=== PATIENT | female | born 1950 | race Caucasian/White ===

== ENCOUNTER 2018-03-24 12:30 | Observation (INO) ==
--- NOTE | 2018-03-24 12:56 | Cardiology History & Physical ---
History of Present Illness Chief complaint: chest pain HPI: Maddison is a 68 year old female who is known to Dr. Ireland with a history of CAD with CABG, HTN and HLD who presented to [facility] in [place] with intermittent sternal chest pain since 0530 this morning. Has had similar episode over the past few weeks but the pain would subside after about an hour. Also reports right leg pain for 1 week. No associated symptoms. CXR without active cardiopulmonary disease. EKG sinus hayden with nonspecific ST-T changes. Troponin was negative. Dr. Ireland was contacted for further evaluation and the patient was transferred to [facility] [place] for observation and rule out [place]. Last echo: 04/2017: EF 60%, NWMA, mild TR/MR, RVSP 17mmHg Last stress test: 05/2017: EF 74%, normal Last HC: 01/2016: EF 65%, LVEDP 25mmHg, RRA71-49%, Cx 40-50%, RCA occluded. Grafts: CHILDS to LAD patent, SVG to RCA patent. Review of Systems - Constitutional Constitutional: Absent: chills, fatigue, fever(s) - EENMT Eyes: Absent: change in vision Balance: Absent: vertigo Mouth/Throat: Absent: sore throat - Cardiovascular Cardiovascular: Present: chest pain, dyspnea on exertion. Absent: palpitations , syncope, orthopnea, edema, heart murmur Rhythm: Absent: abnormal rhythm Vascular: Absent: pedal edema - Respiratory Respiratory: Absent: cough, dyspnea, dyspnea on exertion - Gastrointestinal Gastrointestinal: Absent: constipation, diarrhea, nausea, vomiting - Genitourinary Genitourinary: Absent: dysuria - Integumentary/Breasts Integumentary: Absent: rash - Neurological Neurological: Absent: dizziness - Endocrine Endocrine: Absent: palpitations PFSH CAD, CABG HTN HLD Depression DMII cervical spinal stenosis Surgical History: cholecystectomy. Appendectomy. hysterectomy Family History: Brother - [place], cause of , age 28 Father - [place], cause of age 56 Mother - CAD - Social History Smoking status: Former smoker Packs-years: 38 Substance use type: does not use Alcohol intake frequency: holidays/special occasions only Housing: house Household members: spouse Current occupational status: employed Current residence: Apartment/Private Home Medications Home Medications Medication Instructions Recorded Confirmed Type Aspirin *EC* [Ecotrin] 1 tab PO DAILY 03/24/18 03/24/18 History Atorvastatin Calcium 80 mg PO DAILY 03/24/18 03/24/18 History Calcium 500 + D [Os [place]an[place]-D 500] 1 tab PO DAILY 03/24/18 03/24/18 History Carbamide Peroxide Ear Drops 5 - 10 drops EACH EAR DAILY PRN 03/24/18 03/24/18 History [Debrox] Flaxseed/Omega3,6,9/Fatty Acid 1 each PO DAILY 03/24/18 03/24/18 History [Flax Seed Oil 1,300 mg Softgel] Magnesium Oxide [Magnesium] 400 mg PO DAILY 03/24/18 03/24/18 History Multivitamin/Iron/Folic Acid 1 each PO DAILY 03/24/18 03/24/18 History [Centrum Women Tablet] Telmisartan/Hydrochlorothiazid 1 each PO DAILY 03/24/18 03/24/18 History [Telmisartan-Hctz 40-12.5 mg Tb] Amlodipine [Norvasc] 5 mg PO DAILY #30 tab 03/25/18 Rx Ezetimibe [Zetia] 10 mg PO DAILY #30 tab 03/25/18 Rx Allergies Allergy/AdvReac Type Severity Reaction Status Date / Time sulfamethoxazole Allergy Severe Hives Verified 03/24/18 14:34 [From Bactrim] trimethoprim [From Bactrim] Allergy Severe Hives Verified 03/24/18 14:34 diphenhydramine AdvReac Intermediate Light-Heade Verified 03/24/18 14:34 [From Benadryl] dness gabapentin AdvReac Intermediate Dizziness Verified 03/24/18 14:34 metformin AdvReac Intermediate Nausea Verified 03/24/18 14:34 Exam - Constitutional no acute distress, well nourished, cooperative - Routine HEENT Exam Head: Present: normocephalic ENT: Present: mucous membranes moist - Routine Neck Exam Absent: JVD, carotid bruit - Routine Chest/Breast/Axilla Exam Chest wall: Absent: tenderness - Routine Respiratory Exam Present: CTA bilaterally. Absent: dyspnea, rales, wheezes - Routine Cardiovascular Exam Present: RRR, no murmur - Routine Abdominal Exam Present: soft, non tender - Routine Extremities Exam Present: no edema, pulses intact - Routine Skin Exam Present: intact, dry, warm - Routine Neurological Exam Present: alert, oriented X3 - Routine Psychiatric Exam Present: normal affect, normal thought process Results 03/25/18 01:53 03/25/18 01:53 EKG interpretations - EKG EKG results cardiology: sinus rhythm EKG shows: bradycardia - Blocks, axis, hypertrophy, ST abn Repolarization changes or abnormalities: nonspecific abnormality, ST segment, and/or T wave Hospital Course This is a general summary of the patient's hospital course. For more details refer to the complete medical record. Time spent with patient: 25 - 35 minutes External Problems Reviewed(CCD)?: Yes Resuscitation Status: Full Code Assessment and Plan - Attestation Attestation Narrative: 03/30/18 10:42 Recommendation After examining the patient I agree with the above assessment. I am involved in the formulation of the patient's plan of care. - Assessment and Plan (1) Precordial chest pain Status: Acute Chest pain concerning for ischemia - EKG: sinus hayden with NSSTT changes - trend serial troponin, negative at [place], 1st negative here - NPO at 0800, Plan [facility] tomorrow afternoon - Continue Aspirin, statin, RAB, CCB, cannot tolerate BB due to bradycardia (2) Atherosclerosis of coronary artery bypass graft without angina pectoris Status: Chronic CHILDS to LAD, SVA to RCA in 2012 -Continue Aspirin, statin, RAB, CCB, cannot tolerate BB due to bradycardia (3) Essential (primary) hypertension Status: Chronic Add Amlodipine 5mg for suboptimal control of BP (4) Mixed hyperlipidemia Status: Chronic Continue statin therapy, lipid panel
--- NOTE | 2018-03-24 15:42 | Ultrasound Report ---
Indication: right calf pain PROCEDURE: US venous doppler LE RT: Encounter: Initial Comparison: None Technique: Color Doppler duplex and grayscale sonographic imaging of the right lower extremity was performed. Findings: There is no evidence for acute deep venous thrombosis in the right thigh. Specifically, serial graded compression was performed from the inguinal ligament to the popliteal bifurcation, on the right thigh, demonstrating appropriate compressibility of the deep venous system. In addition, color and pulsed Doppler demonstrate appropriate spontaneous flow, variation with respiration, and augmentation with calf compression. At the ankle, normal flow is identified in the posterior tibial veins; these vessels are also normal in caliber. Impression: No evidence of acute DVT in the right lower limb. .
[2018-03-24] MEDS ORDERED: CARBAMIDE PEROXIDE 6.5% EAR DROPS 15ml EACH EAR PRN (17:16)
[2018-03-24] MEDS: AMLODIPINE 5 MG TABLET PO SCH (18:01)
[2018-03-24] MEDS ORDERED: ACETAMINOPHEN 325 MG TABLET PO PRN ×2 (20:40→20:50)
[2018-03-24] MEDS: ATORVASTATIN 40 MG TABLET PO SCH (20:52)
[2018-03-25] MEDS: AMLODIPINE 5 MG TABLET PO SCH ×2 (07:26→10:02)
[2018-03-25] MEDS: CALCIUM 500 + VIT D 200 TABLET PO SCH ×2 (07:26→10:03)
[2018-03-25] MEDS: ASPIRIN *EC* 81 MG TABLET PO SCH ×2 (07:26→10:03)
[2018-03-25] MEDS: TELMISARTAN 40 MG TABLET PO SCH (07:26)
[2018-03-25] MEDS: MAGNESIUM OXIDE 400 MG TABLET PO SCH ×2 (07:27→10:03)
[2018-03-25] MEDS ORDERED: [UNRECOGNIZED DRUG - OTHER] PO SCH (09:00)
[2018-03-25] MEDS: MULTI-VITAMIN + MINERAL TABLET PO SCH (10:03)
[2018-03-25 11:06] VITALS: BMI 26.5
[2018-03-25] MEDS: NS 1,000 ML IV SCH (14:55)
[2018-03-25] MEDS ORDERED: HEPARIN 1,000 UNITS/500 ML PREMIX (*CVL ONLY*) IV ONE (15:01)
[2018-03-25] MEDS ORDERED: LIDOCAINE 1% (10mg/ml) 30ml SDV INJ ONE (15:01)
[2018-03-25] MEDS ORDERED: IOHEXOL 350mg/ml 200ml BOTTLE ONE (15:16)
[2018-03-25] MEDS ORDERED: MIDAZOLAM 2mg/2ml INJECTION ONE (15:19)
[2018-03-25] MEDS ORDERED: FentaNYL 100 MCG/2 ML INJECTION ONE (15:19)
--- NOTE | 2018-03-25 15:32 | Discharge Summary ---
Discharge Information Date of admission: 03/24/18 13:40 Anticipated date of discharge: 03/25/18 Attending Physician: Jamaal Ireland MD Primary care physician: Liss Garrett MD - Discharge Diagnosis (1) Precordial chest pain Status: Acute (2) Atherosclerosis of coronary artery bypass graft without angina pectoris Status: Chronic (3) Essential (primary) hypertension Status: Chronic (4) Mixed hyperlipidemia Status: Chronic - Procedures Procedures: left heart catheterization - Laboratory Labs: 03/25/18 01:53 03/25/18 01:53 History of Present Illness HPI: Maddison is a 68 year old female who is known to Dr. Ireland with a history of CAD with CABG, HTN and HLD who presented to [facility] in [place] with intermittent sternal chest pain since 0530 this morning. Has had similar episode over the past few weeks but the pain would subside after about an hour. Also reports right leg pain for 1 week. No associated symptoms. CXR without active cardiopulmonary disease. EKG sinus hayden with nonspecific ST-T changes. Troponin was negative. Dr. Ireland was contacted for further evaluation and the patient was [place] [facility] [place] and rule out [place]. Last echo: 04/2017: EF 60%, NWMA, mild TR/MR, RVSP 17mmHg Last stress test: 05/2017: EF 74%, normal Last HC: 01/2016: EF 65%, LVEDP 25mmHg, SYX96-99%, Cx 40-50%, RCA occluded. Grafts: CHILDS to LAD patent, SVG to RCA patent. Hospital Course This is a general summary of the patient's hospital course. For more details refer to the complete medical record. Time spent with patient: 25 - 35 minutes External Problems Reviewed(CCD)?: Yes Resuscitation Status: Full Code Exam Vital signs: Temperature 96.5 F L 03/25/18 04:17 Pulse Rate 67 03/25/18 12:00 Respiratory Rate 18 03/25/18 12:00 Blood Pressure 140/78 H 03/25/18 12:00 Pulse Oximetry 97 03/25/18 12:00 - Constitutional no acute distress, well nourished, cooperative - Routine HEENT Exam Head: Present: normocephalic ENT: Present: mucous membranes moist - Routine Neck Exam Absent: JVD, carotid bruit - Routine Chest/Breast/Axilla Exam Chest wall: Absent: tenderness - Routine Respiratory Exam Present: CTA bilaterally. Absent: dyspnea, rales, wheezes - Routine Cardiovascular Exam Present: no murmur. Absent: RRR - Routine Abdominal Exam Present: soft, non tender - Routine Extremities Exam Present: no edema, pulses intact - Routine Skin Exam Present: intact, dry, warm - Routine Neurological Exam Present: alert, oriented X3 - Routine Psychiatric Exam Present: normal affect, normal thought process Results 03/25/18 01:53 03/25/18 01:53 Cardiac Enzymes 03/24/18 03/25/18 Range/Units 20:36 01:53 Troponin I < 0.012 < 0.012 (0-0.12) ng/ml Lipids 03/25/18 Range/Units 01:53 Triglycerides 221 H (35-135) mg/dL Cholesterol 219 H (132-199) mg/dL HDL Cholesterol 44 (40-60) mg/dL Cholesterol/HDL Ratio 5.0 H (0-4.0) RATIO CBC 03/25/18 Range/Units 01:53 WBC 6.6 (4.5-11.0) T/MM3 RBC 4.42 (4.00-5.20) M/MM3 Hgb 12.7 (12-16) GM/DL Hct 40.2 (36-46) % Plt Count 296 (130-400) T/MM3 Comprehensive Metabolic Panel 03/25/18 Range/Units 01:53 Sodium 142 (136-146) MEQ/L Potassium 3.9 (3.6-5) MEQ/L Chloride 103 (98-107) MEQ/L Carbon Dioxide 28 (22-30) MEQ/L BUN 20.0 H (7-17) MG/DL Creatinine 0.9 (0.7-1.2) mg/dL Glucose 102 (65-110) MG/DL Calcium 9.3 (8.4-10.2) MG/DL Intake and Output 03/24/18 03/25/18 03/25/18 23:59 07:59 15:59 Intake Total 200 / 200 Balance 200 / 200 Intake: Oral 200 / 200 Other: # Voids 1 1 # Bowel Movements 1 Weight 164 lb 7.437 oz 164 lb 7.437 oz Patient Weight 03/25/18 23:59 Weight 164 lb 7.437 oz - Imaging and Cardiology Imaging & Cardiology Narrative: Date of Exam: 03/24/18 Ordering Provider: Chanda Garay APRN Type of Exam(s): US venous doppler LE RT Reason for Exam(s): right calf pain Indication: right calf pain PROCEDURE: US venous doppler LE RT: Encounter: Initial Comparison: None Technique: Color Doppler duplex and grayscale sonographic imaging of the right lower extremity was performed. Findings: There is no evidence for acute deep venous thrombosis in the right thigh. Specifically, serial graded compression was performed from the inguinal ligament to the popliteal bifurcation, on the right thigh, demonstrating appropriate compressibility of the deep venous system. In addition, color and pulsed Doppler demonstrate appropriate spontaneous flow, variation with respiration, and augmentation with calf compression. At the ankle, normal flow is identified in the posterior tibial veins; these vessels are also normal in caliber. Impression: No evidence of acute DVT in the right lower limb. . 03/25/18 15:32 Discharge Plan - Med Rec/Dispo Referrals/Follow Up: Jamaal Ireland MD [Physician] - 2 Weeks Prescriptions: New Amlodipine [Norvasc] 5 mg PO DAILY #30 tab Continue Magnesium Oxide [Magnesium] 400 mg PO DAILY Carbamide Peroxide Ear Drops [Debrox] 5 - 10 drops EACH EAR DAILY PRN PRN Reason: WAX BUILDUP Atorvastatin Calcium 80 mg PO DAILY Flaxseed/Omega3,6,9/Fatty Acid [Flax Seed Oil 1,300 mg Softgel] 1 each PO DAILY Multivitamin/Iron/Folic Acid [Centrum Women Tablet] 1 each PO DAILY Aspirin *EC* [Ecotrin] 1 tab PO DAILY Calcium 500 + D [Os [place]-D 500] 1 tab PO DAILY Telmisartan/Hydrochlorothiazid [Telmisartan-Hctz 40-12.5 mg Tb] 1 each PO DAILY - Disposition 01 Discharged Home, Self-Care - Dismissal Complete Discharge Instructions are:: Complete
[2018-03-25] MEDS ORDERED: BISACODYL 10 MG SUPPOSITORY RECTALLY PRN (16:06)
[2018-03-25] MEDS ORDERED: HYDROCODONE/APAP 7.5 MG/325 MG TABLET PO PRN (16:06)
[2018-03-25] MEDS ORDERED: ONDANSETRON 4 MG/2 ML INJECTION IVP PRN (16:06)
[2018-03-25] MEDS ORDERED: ACETAMINOPHEN 325 MG TABLET PO PRN (16:06)
[2018-03-25] MEDS ORDERED: ATROPINE 1 MG/ML INJECTION IVP PRN (16:06)
[2018-03-25] MEDS ORDERED: METOCLOPRAMIDE 10mg/2ml INJECTION IVP PRN (16:06)
[2018-03-25] MEDS ORDERED: NITROGLYCERIN 0.4 MG SUBLINGUAL TABLET SL PRN (16:06)
[2018-03-25] MEDS ORDERED: MAG-AL + SIM ORAL LIQUID 30ml PO PRN (16:06)
[2018-03-25] MEDS ORDERED: PROMETHAZINE 25 MG INJECTION IVP PRN (16:06)
[2018-03-25] MEDS ORDERED: Bisacodyl EC TAB 5 MG TABLET PO PRN (16:06)
[2018-03-25] MEDS ORDERED: LORazepam 0.5 MG TABLET PO PRN (16:06)
[2018-03-25] MEDS ORDERED: MORPHINE SULFATE 4mg INJECTION IVP PRN ×2 (16:06)
--- NOTE | 2018-03-25 17:14 | Cardiac Catheterization Report ---
DATE OF PROCEDURE March 25, 2018 The patient is a pleasant 68-year-old lady with history of coronary artery disease and coronary artery bypass graft who was admitted with what appears to be unstable angina. She was referred for further evaluation by cardiac catheterization and possible intervention. Informed consent was obtained after explaining the procedure and the potential risks to the patient who agreed to proceed with the procedure. PROCEDURE 1. Left heart catheterization. 2. Coronary angiography. 3. Left ventriculography. 4. Bypass angiography. 5. Selective CHILDS angiography. 6. Right femoral angiography to visualize the vessel for closure device. 7. Successful Mynx deployment for hemostasis. TECHNIQUE She was prepped and draped in the usual sterile techniques. Conscious sedation was performed using Versed and fentanyl. 1% lidocaine was used for local anesthesia. Using modified Seldinger technique, arterial access was obtained into the right femoral artery with placement of a 6-Irish arterial sheath. LEFT VENTRICULOGRAPHY Left ventriculography in single-plane HERNANDEZ shallow projection showed normal LV systolic function with ejection fraction of about 65% with no mitral regurgitation or gradient across the aortic valve. LVEDP was about 8. CORONARY ANGIOGRAPHY Left main was free of significant lesions. Left anterior descending artery had about 70%-75% stenosis. Left circumflex artery was a medium-caliber vessel with no significant lesions. Right coronary artery was occluded distally. CHILDS to LAD was widely patent with excellent flow. A vein graft to the right coronary artery was patent with excellent flow. Right femoral angiography showed patent common femoral, proximal SFA and profunda and therefore Mynx was used for hemostasis. IMPRESSION 1. Normal LV systolic function with ejection fraction of 65%. 2. Coronary artery disease as described above with patent grafts. 3. Successful Mynx deployment for hemostasis. PLAN Medical management. The patient may require noncardiac chest pain workup. MTDD
[2018-03-25] MEDS: EZETIMIBE 10 MG TABLET PO SCH (17:53)
[2018-03-25] MEDS: ATORVASTATIN 40 MG TABLET PO SCH (20:55)
[2018-03-26] MEDS: NS 1,000 ML IV SCH (04:24)
[2018-03-26] MEDS: MAGNESIUM OXIDE 400 MG TABLET PO SCH (08:36)
[2018-03-26] MEDS: CALCIUM 500 + VIT D 200 TABLET PO SCH (08:36)
[2018-03-26] MEDS: AMLODIPINE 5 MG TABLET PO SCH (08:37)
[2018-03-26] MEDS: ASPIRIN *EC* 81 MG TABLET PO SCH (08:37)
[2018-03-26] MEDS: MULTI-VITAMIN + MINERAL TABLET PO SCH (08:37)
[2018-03-26] MEDS: TELMISARTAN 40 MG TABLET PO SCH (08:37)
[2018-03-26] MEDS: EZETIMIBE 10 MG TABLET PO SCH (08:40)
[2018-03-26 12:11] VITALS: BP 120/65; RESP 16; TEMP 97.8; O2SAT 93
[2018-03-26 14:21] VITALS: PULSE 67
--- NOTE | 2018-03-26 15:45 | Cardiology Progress Note ---
Subjective Principal diagnosis: Pericrodial Pain Interval history: Mrs. Dhillon had a HC yesterday per that showed no obstructive disease and no PCI was indicated. She was set to discharge until notified via telephone yesterday evening that she was c/o increased pain to right groin sight that was only minimally relieved with PRN [place]. Notified site was soft, palpable, no hematoma and/or bleeding. Spoke with and was decided to keep pt overnight for monitoring. Instructed RN to have pt ambulate and stay out of bed as much as possible. Today the patient is in no pain. Her right groin site is soft, palpable, dressing C/D/I, no bruising and minimal tenderness with palpation of the site. She states she has been tolerating walking without any difficulty, no CP, SOA, n/v, diaphoresis and RN states no PRN meds needed overnight. She will d/c to home with her and follow up with as instructed. Exam Vital signs: Temperature 97.8 F 03/26/18 12:09 Pulse Rate 67 03/26/18 14:00 Respiratory Rate 16 03/26/18 12:09 Blood Pressure 120/65 03/26/18 12:09 Pulse Oximetry 93 03/26/18 12:09 Inpatient Medications: Discontinued Medications Generic Name Dose Route Start Last Admin Trade Name Freq PRN Reason Stop Dose Admin Acetaminophen 325 mg 03/24/18 20:40 03/24/18 20:53 Tylenol PO 325 mg Q5H PRN Administration Discomfort Acetaminophen 0 mg 03/24/18 20:50 Tylenol PO Q5H PRN Discomfort Acetaminophen 325 - 650 mg 03/25/18 16:06 Tylenol PO Q5H PRN Pain Hydrocodone Bitart/Acetaminophen 1 - 2 tab 03/25/18 16:06 03/25/18 17:52 [place] 7.5/325 PO 1 tab Q5H PRN Administration Pain Al Hydroxide/Mg Hydroxide 30 ml 03/25/18 16:06 Maalox Plus PO Q3H PRN Indigestion Amlodipine Besylate 5 mg 03/24/18 17:30 03/26/18 08:37 Norvasc PO 5 mg DAILY DEREJE Administration Aspirin 81 mg 03/25/18 09:00 03/26/18 08:37 Ecotrin PO 81 mg DAILY DEREJE Administration Atorvastatin Calcium 80 mg 03/24/18 21:00 03/25/18 20:55 Lipitor PO 80 mg HS DEREJE Administration Atropine Sulfate 0.5 mg 03/25/18 16:06 Atropine IVP Q5M PRN Bradycardia Bisacodyl 5 - 10 mg 03/25/18 16:06 Dulcolax PO DAILY PRN Constipation Bisacodyl 10 mg 03/25/18 16:06 Dulcolax RECTALLY DAILY PRN Constipation Calcium/Vitamin D 1 tab 03/25/18 09:00 03/26/18 08:36 Os Guan[place]ito-D 500 PO 1 tab DAILY DEREJE Administration Carbamide Peroxide 5 - 10 drops 03/24/18 17:16 Debrox EACH EAR DAILY PRN WAX BUILDUP Ezetimibe 10 mg 03/25/18 15:30 03/26/18 08:40 Zetia PO 10 mg DAILY DEREJE Administration Hydrochlorothiazide 12.5 mg 03/25/18 08:00 03/26/18 08:37 Microzide PO 12.5 mg WB DEREJE Administration Sodium Chloride 1,000 mls @ 75 mls/hr 03/25/18 10:45 03/26/18 08:01 Normal Saline IV Infused .[id number] DEREJE Infusion Lorazepam 0.5 - 1 mg 03/25/18 16:06 Ativan PO Q4H PRN Anxiety Lorazepam 0.5 - 1 mg 03/25/18 16:06 Ativan Inj IVP Q4H PRN Anxiety Magnesium Hydroxide 30 ml 03/25/18 16:06 Mom PO DAILY PRN Constipation Magnesium Oxide 400 mg 03/25/18 09:00 03/26/18 08:36 Magox PO 400 mg DAILY DEREJE Administration Metoclopramide HCl 5 - 10 mg 03/25/18 16:06 Reglan IVP Q6H PRN Nausea &/or vomiting Morphine Sulfate 2 - 4 mg 03/25/18 16:06 Morphine Sulfate Inj IVP Q5M PRN Angina Morphine Sulfate 2 - 4 mg 03/25/18 16:06 Morphine Sulfate Inj IVP 03/26/18 16:05 Q2H PRN Pain Multivitamins/Minerals 1 tab 03/25/18 09:00 03/26/18 08:37 Therapeutic - M PO 1 tab DAILY DEREJE Administration Nitroglycerin 0.4 mg 03/25/18 16:06 Nitrostat SL Q5MIN3 PRN Angina Non-Formulary Medication 1 each 03/25/18 09:00 Flaxseed/Omega3,6,9/Fatty Acid [Flax Seed Oil 1,300 Mg Softgel] PO DAILY DEREJE Non-Formulary Medication 1 each 03/25/18 09:00 Telmisartan/Hydrochlorothiazid [Telmisartan-Hctz 40-12.5 Mg Tb] PO DAILY DEREJE Ondansetron HCl 4 mg 03/25/18 16:06 Zofran IVP Q6H PRN Nausea &/or vomiting Promethazine HCl 12.5 - 25 mg 03/25/18 16:06 Phenergan Inj IVP Q6H PRN Nausea &/or vomiting Telmisartan 40 mg 03/25/18 08:00 03/26/18 08:37 Micardis PO 40 mg WB DEREJE Administration - Constitutional no acute distress, cooperative - Routine HEENT Exam Eye: Present: EOMI ENT: Present: mucous membranes moist - Routine Neck Exam Absent: JVD - Routine Respiratory Exam Present: CTA bilaterally. Absent: dyspnea, respiratory distress, wheezes, crackles - Routine Cardiovascular Exam Present: RRR, no murmur. Absent: gallop, rubs, JVD - Routine Abdominal Exam Present: soft, non distended, non tender - Routine Extremities Exam Present: no edema, pulses intact - Routine Skin Exam Present: intact, dry, warm, wounds (Right groin with dressing C/D/I, no bruising , bleeding, soft/palpable, no hematoma.) - Routine Neurological Exam Present: alert, oriented X3 - Routine Psychiatric Exam Present: normal affect, cooperative, good insight. Absent: anxious, agitated Results 03/25/18 01:53 03/25/18 01:53 Intake and Output 03/26/18 03/26/18 03/26/18 06:59 14:59 22:59 Intake Total 1125 / 1125 511.25 / 511.25 Balance 1125 / 1125 511.25 / 511.25 Intake: IV 1000 / 1000 271.25 / 271.25 Ns 1,000 ml @ 75 mls/hr IV . 1000 / 1000 271.25 / 271.25 [id number] DEREJE Rx#:[id number] Oral 125 / 125 240 / 240 Other: # Voids 1 1 # Bowel Movements 1 Weight 76.2 kg Patient Weight 03/27/18 06:59 Weight 76.2 kg Assessment and Plan - Assessment and Plan (1) Atherosclerosis of coronary artery bypass graft without angina pectoris Status: Chronic HC 03/25/2018: no obstructive CAD, no PCI. Continue med management with ASA, statin, Norvasc and Telmisartan/HCTZ. Unable to tolerate BB 2/2 bradycardia. Follow up in clinic per . (2) Right groin pain Status: Acute s/p HC 03/25/2018. Had increased pain post HC and kept overnight for monitoring. Has resolved today. Right groin site with dressing C/D/I, soft and palpable with no hematoma, bleeding or bruising. May remove dressing tonight, post HC instructions provided with d/c instructions. (3) Essential (primary) hypertension Status: Chronic Improved with added CCB. Will continue Norvasc 5mg PO Daily and home Telmisartan/HCTZ. No BB d/t causes bradycardia. Continue routine monitoring in clinic. (4) Mixed hyperlipidemia Status: Chronic Continue ASA and statin. (5) Precordial chest pain Status: Acute Has resolved. HC with no obstructive disease/intervention. Continue med management with statin, ASA, CCB and ARB. Routine monitoring in clinic. Hospital Course Summary Disclaimer: The visit summary below is not to be considered part of the above Progress Note.
== END 2018-03-26 14:52 | disposition home or self-care (01) ==
LOC: SRG
PROVIDERS: ADMIT Internal Medicine Cardiovascular Disease; ATTEND Internal Medicine Cardiovascular Disease